=== PATIENT | male | born 1940 | race Caucasian/White ===

== ENCOUNTER 2019-04-15 11:07 | Day surgery (SDC) | payer MEDICARE, OTHER ==
[2019-04-15] MEDS ORDERED: Neostigmine Methylsulfate 10 MG/10 ML MDV IVPUSH ONE (11:08)
[2019-04-15] MEDS ORDERED: Midazolam 1 MG/ML 2 ML SDV IV ONE (11:08)
[2019-04-15] MEDS ORDERED: Rocuronium 100 MG/10 ML MDV IV ONE (11:08)
[2019-04-15] MEDS ORDERED: Propofol 200 MG/20 ML SDV IV ONE (11:08)
[2019-04-15] MEDS ORDERED: Lidocaine 2% 100 MG/5 ML Syringe IVPUSH ONE (11:08)
[2019-04-15] MEDS ORDERED: Acetaminophen 1,000 MG/100 ML Infusion Bottle IV ONE (11:08)
[2019-04-15] MEDS ORDERED: Ketorolac 30 MG/ML SDV IVPUSH ONE (11:08)
[2019-04-15] MEDS ORDERED: Dexamethasone 4 MG/ML 5 ML MDV IVPUSH ONE (11:08)
[2019-04-15] MEDS ORDERED: Lactated Ringers 1,000 ML IV ONE (11:08)
[2019-04-15] MEDS ORDERED: fentaNYL 100 MCG/2 ML SDV IV ONE (11:08)
[2019-04-15] MEDS ORDERED: Glycopyrrolate 0.2 MG/ML 5 ML MDV IV ONE (11:08)
[2019-04-15] MEDS ORDERED: Ondansetron 4 MG/2 ML SDV IVPUSH ONE (11:08)
[2019-04-15] MEDS ORDERED: Lactated Ringers 1,000 ML IV SCH (11:30)
[2019-04-15] MEDS ORDERED: ceFAZolin 2 GM in Premix Bag 1 BAG IV ONE (13:00)
--- NOTE | 2019-04-15 13:09 | PCM.HPR ---
H & P Addendum review - H & P Addendum Review Date of Original H & P: 04/09/19 Date Reviewed: 04/15/19 Time Reviewed: 13:00 Patient was Examined: No Changes
[2019-04-15] MEDS ORDERED: Bupivacaine 0.25% 30 ML SDV ONE (13:38)
--- NOTE | 2019-04-15 14:19 | PCM.OPNOTE ---
- General Post-Op/Procedure Note Date of Surgery/Procedure: 04/15/19 Operative Procedure(s): L Lap Spigalien Hernia Repair Findings: 2 cm hernia Pre Op Diagnosis: L Spigalein Hernia Post-Op Diagnosis: Same Anesthesia Technique: General ET Tube Primary Surgeon: Ted Salgado Vehicle Glass Technician: Giorgi Contreras in mLs: 5 Complications: None Condition: Good
[2019-04-15] MEDS: Morphine 2 MG/ML Syringe IVPUSH PRN ×2 (16:21→20:30)
[2019-04-15] MEDS: Sodium Chloride 0.9% 10 ML Syringe FLUSH PRN ×2 (16:25→20:31)
[2019-04-15] MEDS: Acetaminophen/HYDROcodone 325-5 MG Tab PO PRN (19:37)
[2019-04-15] MEDS ORDERED: Gabapentin 300 MG Cap *PTOM PO SCH (21:00)
[2019-04-16] MEDS: Acetaminophen/HYDROcodone 325-5 MG Tab PO PRN ×3 (00:35→09:54)
[2019-04-16] MEDS ORDERED: Omeprazole 20 MG CAP *PTOM PO SCH (06:00)
[2019-04-16] MEDS ORDERED: Clopidogrel 75 MG Tab *PTOM PO SCH (09:00)
[2019-04-16] MEDS ORDERED: Isosorbide Mononitrate 60 MG Tab.ER *PTOM PO SCH (09:00)
[2019-04-16] MEDS ORDERED: Aspirin 325 MG Tab PO SCH (09:00)
[2019-04-16] MEDS ORDERED: OXYBUTYNIN 15 MG PO SCH (09:00)
--- NOTE | 2019-04-16 09:20 | OR ---
DATE OF OPERATION: 04/15/2019 SURGEON: Ted Salgado MD ASSIST: Giorgi Contreras MD was necessary for retraction and reduce surgical time. PREOPERATIVE DIAGNOSIS: Left Spigelian hernia. POSTOPERATIVE DIAGNOSIS: Left Spigelian hernia. PROCEDURE: Laparoscopic left Spigelian hernia repair with mesh. ANESTHESIA: General. PROCEDURE IN DETAIL: The patient was brought to the operating room where general endotracheal anesthesia was administered. The abdomen was prepped with ChloraPrep and draped sterilely. Time-out was performed. A left upper quadrant incision was made and the Visiport entered into the peritoneal cavity without difficulty. The pneumoperitoneum was obtained. Two right-sided 5 mm working ports were placed. The patient was placed in a slight Trendelenburg position. He has an obvious hernia in the left lower quadrant, consistent with the CT scan findings of a Spigelian hernia. There was omentum present in this. This was transected with electrocautery where it was attached to the peritoneum. There was also some fatty tissue in the hernia defect that was reduced. The peritoneum was cleared around this circumferentially to expose the lateral edge of the rectus muscle, inferior epigastric blood vessels, and lateral transversalis fascia. The hernia defect measures 2 cm in diameter. A 4 1/2 x 4 1/2 inch Com[employer]ix mesh was chosen that would give good broad coverage over the defect. A suture was placed in the middle of this and the mesh rolled and introduced into the peritoneal cavity. The suture was then grasped with the port closure device and elevated in place. The mesh was then secured circumferentially with 2 rows of PermaSorb tacks, providing good broad coverage. The left upper port was then removed and closed with the port closure device using 0 Vicryl. The ports were removed under direct vision and remained hemostatic, after pneumoperitoneum was removed. The skin was closed with 4-0 Vicryl subcuticular sutures. Benzoin and Steri-Strips were placed and Band-Aids applied. The patient tolerated the procedure well. Estimated blood loss 5 mL. He returned to Postanesthesia in stable condition. /[id number] NIK/COLIN KLINE
[2019-04-16] MEDS: CEPHALEXIN 500 MG PO SCH ×2 (09:53→17:38)
[2019-04-16] MEDS ORDERED: Simvastatin 40 MG Tab PO SCH (21:00)
== END 2019-04-16 12:30 | disposition home or self-care (01) ==
LOC: FB.SDS 11:07 → FB.MS 15:16 → FB.SDS 04-16 12:30
PROVIDERS: ATTEND Surgery
DX: K43.9 Ventral hernia without obstruction or gangrene (principal); I10 Essential (primary) hypertension; I25.10 Atherosclerotic heart disease of native coronary artery without angina pectoris; I25.2 Old myocardial infarction; E78.00 Pure hypercholesterolemia, unspecified; K21.9 Gastro-esophageal reflux disease without esophagitis; Z95.5 Presence of coronary angioplasty implant and graft; Z95.1 Presence of aortocoronary bypass graft; Z87.891 Personal history of nicotine dependence; Z79.82 Long term (current) use of aspirin; Z79.02 Long term (current) use of antithrombotics/antiplatelets; Z79.899 Other long term (current) drug therapy
CPT/HCPCS: 00752-QZ; 93005; 94150; A9270-GY; C1713; C1781; J0131; J0690; J1100; J1885; J2001; J2250; J2270; J2405; J2704; J2710; J3010; J3490; J7120